=== PATIENT | female | born 1980 | race African-American/Black ===

== ENCOUNTER 2016-11-04 01:19 | Emergency (ER) | payer SELFPAY ==
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
== END 2016-11-04 05:20 | disposition home or self-care (01) ==
LOC: CED 01:19
DX: S00.83XA Contusion of other part of head, initial encounter (principal); Y04.0XXA Assault by unarmed brawl or fight, initial encounter
CPT/HCPCS: 70450; 70486; 96372; 99284; J1885